=== PATIENT | male | born 1955 | race Caucasian/White ===

== ENCOUNTER 2024-11-11 13:46 | Emergency (ER) | payer MEDICARE ==
[~2024-11-11] VITALS: Ht 172.7 cm; Wt 87.2 kg
[2024-11-11] MEDS: LIDOcaine 1% 30ml preserv. free vial IJ ONE (14:17)
[2024-11-11] MEDS ORDERED: SULF1TAB49 PO (16:01)
[2024-11-11 16:24] VITALS: BP 141/83; PULSE 92; RESP 16; TEMP 98.7; O2SAT 98
== END 2024-11-11 16:27 | disposition home or self-care (01) ==
LOC: ER 13:47
DX: S60.450A Superficial foreign body of right index finger, initial encounter (principal); X58.XXXA Exposure to other specified factors, initial encounter; Y93.89 Activity, other specified; Y92.89 Other specified places as the place of occurrence of the external cause; Y99.8 Other external cause status
CPT/HCPCS: 10120; 73140; 99285; A6402; Z7610; A6449